=== PATIENT | male | born 1950 | race Caucasian/White ===

== ENCOUNTER 2020-10-14 18:00 | Inpatient (IN) | payer OTHER, MEDICARE ==
[~2020-10-14] VITALS: Ht 185.4 cm; Wt 92.7 kg
[2020-10-14] MEDS: METOPROLOL TART 25 MG TABLET PO SCH (09:00)
[2020-10-14] MEDS ORDERED: NS 1,000 ML IV ONE (18:55)
--- NOTE | 2020-10-14 19:27 | REP ---
INDICATION: infected right great toe ? osteo. COMPARISON: NONE TECHNIQUE: FOUR VIEWS FINDINGS: THE FOUR VIEWS SHOW DEGENERATIVE CHANGES AT THE HIGH P AND MTP JOINT OF THE GREAT TOE WITH MARGINAL OSTEOPHYTES. I DO NOT SEE SUBCUTANEOUS EMPHYSEMA IN THE TOE SOME MILD SOFT TISSUE SWELLING IS IDENTIFIED. NO SOFT TISSUE ULCERATIONS ARE SEEN. NO PLAIN FILM BONY EROSIONS ARE IDENTIFIED. FIRST METATARSAL AND ADJACENT METATARSALS AND PHALANGES ARE WITHOUT OTHER SIGNIFICANT FINDINGS. IMPRESSION: 1. MINOR SOFT TISSUE SWELLING ABOUT THE GREAT TOE BUT NO VISIBLE OR DISPLACED FRACTURE, BONY DESTRUCTIVE LESION, SOFT TISSUE ULCERATION OR BONY EROSION. RADIOGRAPH SUGGESTS A VERY THICKENED TOENAIL OF THE GREAT TOE. NO SUBCUTANEOUS EMPHYSEMA BY PLAIN FILM. THERE ARE DEGENERATIVE CHANGES AT IP AND MTP JOINTS OF THE GREAT TOE. NO OTHER RADIOGRAPHIC FINDINGS. PLEASE RECALL THAT PLAIN RADIOGRAPHS REQUIRE LEAST 50% OF AN AREA OF BONE NEEDS TO BE RESORBED BEFORE OSTEOMYELITIS IS GENERALLY VISIBLE ON PLAIN X-RAY. <Electronically signed by Rick Desai > 10/14/201923
[2020-10-14 19:36] LABS: BASO # 0.1 10^3/uL (0.0-0.2); BASO % 0.7 % (0.0-1.0); EOS # 0.2 10^3/uL (0.0-0.5); EOS % 1.6 % (0.0-3.0); HEMOGLOBIN 13.6 g/dl (13.5-17.5); LYMPH # 1.9 10^3/uL (1.5-5.0); LYMPH % 14.3 % (24.0-44.0); MEAN CORPUSCULAR HEMOGLOBIN 28.3 pg (27.0-33.0); MEAN CORPUSCULAR HGB CONC 31.6 g/dl (32.0-36.5); MEAN CORPUSCULAR VOLUME 89.4 fl (80.0-96.0); NEUTROPHILS # 10.3 10^3/uL (1.5-8.5); PLATELET COUNT, AUTOMATED 378 10^3/uL (150-450); RED BLOOD COUNT 4.81 10^6/uL (4.30-6.10); WHITE BLOOD COUNT 13.6 10^3/uL (4.0-10.0)
[2020-10-14 19:55] LABS: ERYTHROCYTE SEDIMENTATION RATE 48 mm/hr (0-20)
[2020-10-14] MEDS ORDERED: VANCOMYCIN HCL 1,750 MG in IV FLUID PLACE HOLDER 1 EA IV ONE (19:55)
[2020-10-14 20:03] LABS: ALBUMIN 4.1 GM/DL (3.2-5.2); BILIRUBIN,DIRECT 0.2 MG/DL (0.0-0.2); BILIRUBIN,TOTAL 0.5 MG/DL (0.2-1.0); C REACTIVE PROTEIN QUANTITATIV 4.38 MG/DL (0.00-0.30); TOTAL PROTEIN 8.4 GM/DL (6.4-8.2)
--- NOTE | 2020-10-14 20:03 | REPVR ---
PROCEDURE INFORMATION: Exam: US Duplex Right Lower Extremity Veins, Limited Exam date and time: 10/14/2020 7:58 PM Age: 69 years old Clinical indication: Swelling (edema) of limb; Lower extremity, right; Additional info: R/O dvt TECHNIQUE: Imaging protocol: Real-time Duplex ultrasound of the Right Lower Extremity with 2-D gresham scale, color Doppler flow and spectral waveform analysis with image documentation. Limited exam was focused on the right lower extremity veins. COMPARISON: No relevant prior studies available. FINDINGS: Right deep veins: Unremarkable. The common femoral, femoral, proximal profunda femoral and popliteal veins are patent without thrombus. Normal Doppler waveforms. Normal compressibility and/or augmentation response. Right superficial veins: Unremarkable. Saphenofemoral junction is patent without thrombus. Soft tissues: Unremarkable. IMPRESSION: No evidence of deep vein thrombosis. Electronically signed by: Pk Greenwood On 10/14/2020 20:03:17 PM
[2020-10-14] MEDS ORDERED: VANCOMYCIN HCL 750 MG, VIAL MATE ADAPTER 1 EACH in NS 250 ML IV ONE (20:05)
[2020-10-14] MEDS ORDERED: VANCOMYCIN HCL 1,000 MG, VIAL MATE ADAPTER 1 EACH in NS 250 ML IV ONE (20:05)
[2020-10-14] MEDS: LATANOPROST 0.005% OPHTH SOLN 2.5 ML OU SCH (21:00)
[2020-10-14] MEDS: LEVEMIR (INSULIN DETEMIR) 1 UNITS/0.01ML SC SCH (21:00)
[2020-10-14] MEDS ORDERED: MOM 30ML SUSPENSION UDC PO PRN (21:05)
[2020-10-14] MEDS ORDERED: ACETAMINOPHEN TAB 650MG DOSE (2X325MG) PO PRN (21:05)
[2020-10-14] MEDS ORDERED: MAALOX 30 ML SUSP *UDC PO PRN (21:05)
[2020-10-14] MEDS ORDERED: GLUCOSE 4GM CHEW TABLET PO PRN (21:10)
[2020-10-14] MEDS ORDERED: GLUCAGON INJ 1MG VIAL SC PRN (21:10)
[2020-10-14] MEDS ORDERED: VANCOMYCIN HCL 1,000 MG, VIAL MATE ADAPTER 1 EACH in NS 250 ML IV SCH (21:10)
[2020-10-14] MEDS ORDERED: DEXTROSE 50% 50 ML SYRINGE IV PRN (21:10)
[2020-10-14] MEDS ORDERED: ATOR80TA59 PO (21:26)
[2020-10-14] MEDS ORDERED: FERR32TA PO (21:26)
[2020-10-14] MEDS ORDERED: POTA10CA32 PO (21:26)
[2020-10-14] MEDS ORDERED: HYDR-3490 PO (21:26)
[2020-10-14] MEDS ORDERED: GLUC1KIT IM (21:26)
[2020-10-14] MEDS ORDERED: ASPI-161 PO (21:26)
[2020-10-14] MEDS ORDERED: METO1TAB87 PO (21:26)
[2020-10-14] MEDS ORDERED: XALA0.007 OU (21:26)
[2020-10-14] MEDS ORDERED: FINA5TAB2 PO (21:26)
[2020-10-14] MEDS ORDERED: LEVO25TA5 PO (21:26)
[2020-10-14] MEDS ORDERED: AMLO1TAB25 PO (21:26)
[2020-10-14] MEDS ORDERED: FOSI20TA79 PO (21:26)
[2020-10-14] MEDS ORDERED: LANTINJ4 SC (21:26)
[2020-10-14] MEDS ORDERED: GABA-845 PO (21:26)
[2020-10-14] MEDS ORDERED: D31000TA2 PO (21:26)
[2020-10-14] MEDS ORDERED: METF-838 PO (21:26)
[2020-10-14] MEDS ORDERED: ALLO100T PO (21:26)
[2020-10-14] MEDS ORDERED: INSUH10VL SC (21:26)
[2020-10-14 21:43] LABS: RSV AMPLIFICATION NEGATIVE (NEGATIVE)
--- NOTE | 2020-10-14 21:53 | HPEPDOC ---
[facility] Medical History & Physical Date of Admission Oct 14, 2020 Date of Service: Oct 14, 2020 History and Physical CHIEF COMPLAINT: R toe pain HISTORY OF PRESENT ILLNESS: 69 yo M, with a PMHx of CAD (s/p CABG 2011), DM2, H TN, HLD, CVA, presented to ER with a 1 week hx of R great toe pain and swelling, with redness extending up the R leg. Patient denies recent trauma or abrasion to the leg, no falls, and does not report fevers or chills. He has been taking keflex for the past 3 days without improvement. Vitals were reviewed. T 97.9. HR 77. RR 24. BP 150/80. 98% on RA. Lab work significant for: WBC 13.6. Hgb 13.6. PLT 378. LA 2.3. Cr 1.5 (POC). BG 167. CRP 4.38. ESR 48. XR of the R foot does not indicate evidence for osteomyelitis. DVT in the RLE was ruled out by venous duplex. He was started on IV vancomycin and given a 1L NS bolus. Wound and blood cultures were sent from ER. Patient will be admitted for management of R foot cellulitis 2/2 acute paronychia. Patient denies chest pain, palpitations, nausea, vomiting, diarrhea. Of note, patient has a hx of suspect compartment syndrome vs infection of the R leg, which occurred subsequent to harvesting of venous grafts from his R leg during his CABG in 2011, resulting in neuropathy. PAST MEDICAL HISTORY: DM2 CAD s/p CABG HTN HLD CVA HLD PAST SURGICAL HISTORY: CABG in 2011. SOCIAL HISTORY: denies etoh, tobacco use, illicits FAMILY HISTORY: Mother and brother - [place] ALLERGIES: Please see below. REVIEW OF SYSTEMS: A 10 point ROS was conducted, pertinent findings are noted in the HPI HOME MEDICATIONS: Please see below. PHYSICAL EXAMINATION: VITAL SIGNS: please see below General: NAD, comfortable HEENT: PERRLA, EOMI, sclerae clear Neck: supple, normal ROM, no JVD Respiratory: lungs CTAB, no wheeze, no rales, no crackles CVS: RRR, normal S1, S2, no murmurs Abdo: soft, no masses, no hepatosplenomegaly, BS+, no rebound tenderness Extremities: R toe nail hyperkeratotic, erythematous, swollen, with erythema extending upwards to include mid calf. Numerous scars on R leg, possibly 2/2 fasciotomy? Neuro: moving all 4 extremities, CN2-12 intact Psych: calm, cooperative, AAO x 3 LABORATORY DATA: See below. IMAGING: MRI R foot (10/14/20): 1. Acute osteomyelitis of the hallux distal phalanx, as described above. RLE venous duplex (10/14/20): No evidence of deep vein thrombosis. R toe XR (10/14/20): MINOR SOFT TISSUE SWELLING ABOUT THE GREAT TOE BUT NO VISIBLE OR DISPLACED FRACTURE, BONY DESTRUCTIVE LESION, SOFT TISSUE ULCERATION OR BONY EROSION. RADIOGRAPH SUGGESTS A VERY THICKENED TOENAIL OF THE GREAT TOE. NO SUBCUTANEOUS EMPHYSEMA BY PLAIN FILM. THERE ARE DEGENERATIVE CHANGES AT IP AND MTP JOINTS OF THE GREAT TOE. NO OTHER RADIOGRAPHIC FINDINGS. PLEASE RECALL THAT PLAIN RADIOGRAPHS REQUIRE LEAST 50% OF AN AREA OF BONE NEEDS TO BE RESORBED BEFORE OSTEOMYELITIS IS GENERALLY VISIBLE ON PLAIN X-RAY. MICROBIOLOGY: Please see below. ASSESSMENT: 69 yo M, with a PMHx of CAD (s/p CABG 2011), DM2, HTN, HLD, CVA, presenting with erythema, pain and purulent discharge from the R great toe for the past week. Patient will be admitted to hospitalist service for management of RLE cellulitis 2/2 acute paronychia. . PLAN: R leg cellulitis 2/2 acute paronychia - WBC elevated 13.6. Afebrile - blood and wound cultures sent from ER - XR imaging does not show osteomyelitis - started on vancomycin in ER. Added cefepime - ordered MRSA screen - patient will require podiatry evaluation in AM - given hx of DM2, and onset of symptoms < 2 weeks, will pursue MRI imaging - showing acute osteomyelitis of the R hallux. - will keep patient NPO in event of surgical intervention in AM MICHAEL - Cr 1.5 - s/p 1L NS in ER - gentle IVF D5-1/2NS at 80 cc/hr while NPO DM2 - takes lantus 20 units with ISS, metformin - resume home dose lantus - ISS, FSBS AC and HS - hold metformin HTN - resume home meds: amlodipine 10 mg daily; holding fosinopril 10 mg daily HCTZ 25 mg daily in setting of MICHAEL Hx of hypothyroidism - resume Synthroid 37.5 mcg daily Neuropathy affecting RLE - takes gabapentin 1200 mg qhs - will hold this evening given MICHAEL Hx of CAD s/p CABG - resume home ASA/lipitor Hx of iron deficiency anemia - resume iron Hx of BPH - resume proscar Hx of gout - resume allopurinol DVT ppx: SCDs, TEDs. Heparin 5000 units q8h. Dispo: pending clinical improvement. PT and OT ordered given reduced mobility and use of walker/cane. Vital Signs Vital Signs Date Time Temp Pulse Resp B/P (MAP) Pulse Ox O2 Delivery O2 Flow Rate FiO2 10/14/20 19:28 10/14/20 18:11 97.9 77 24 98 Room Air Laboratory Data Labs 24H Laboratory Tests 2 10/14/20 19:05: Immature Granulocyte % (Auto) 0.4, Neutrophils (%) (Auto) 76.0H, Lymphocytes (%) (Auto) 14.3L, Monocytes (%) (Auto) 7.0, Eosinophils (%) (Auto) 1.6, Basophils (%) (Auto) 0.7, Neutrophils # (Auto) 10.3H, Lymphocytes # (Auto) 1.9, Monocytes # (Auto) 1.0H, Eosinophils # (Auto) 0.2, Basophils # (Auto) 0.1, Nucleated Red Blood Cells % (auto) 0.0, Erythrocyte Sedimentation Rate 48H, Lactic Acid Level 2.3*H, Total Bilirubin 0.5, Direct Bilirubin 0.2, Aspartate Amino Transf (AST/SGOT) 9, Alanine Aminotransferase (ALT/SGPT) 22, Alkaline Phosphatase 145H, C-Reactive Protein, Quantitative 4.38H, Total Protein 8.4H, Albumin 4.1, Albumin/Globulin Ratio 1.0 10/14/20 19:27: POC Glucose (Misc Panel) 167H, POC Sodium (Misc Panel) 138, POC Potassium (Misc Panel) 4.3, POC Chloride (Misc Panel) 103, POC Total CO2 (Misc Panel) 25.0, POC Blood Urea Nitrogen (Misc Panel 28H, POC Ionized Calcium (Misc Panel) 5.1, POC Creatinine (Misc Panel) 1.5H, POC Hematocrit (Misc Panel) 43.0 10/14/20 20:58: CBC/BMP Laboratory Tests 10/14/20 19:05 Microbiology Microbiology 10/14/20 Gram Stain, Received Pending 10/14/20 Wound Culture, Received Pending 10/14/20 Blood Culture, Received Pending 10/14/20 Blood Culture, Received Pending Home Medications Scheduled Allopurinol (Allopurinol) 100 Mg Tablet, 100 MG PO DAILY Amlodipine Besylate (Amlodipine Besylate) 10 Mg Tablet, 10 MG PO DAILY Aspirin (Aspirin EC) 81 Mg Tablet.dr, 81 MG PO DAILY Atorvastatin Calcium (Atorvastatin Calcium) 80 Mg Tablet, 80 MG PO DAILY Cholecalciferol (Vitamin D3) (Vitamin D3) 1,000 Unit Tablet, 2,000 UNITS PO DAILY Ferrous Gluconate (Ferrous Gluconate) 324 Mg Tablet, 324 MG PO BID Finasteride (Finasteride) 5 Mg Tablet, 5 MG PO DAILY Fosinopril Sodium (Fosinopril Sodium) 20 Mg Tablet, 10 MG PO DAILY Gabapentin (Gabapentin) 400 Mg Capsule, 1,200 MG PO QHS Hydrochlorothiazide (Hydrochlorothiazide) 25 Mg Tablet, 25 MG PO DAILY Insulin Glargine,Hum.rec.anlog (Lantus Solostar) 100 Unit/1 Ml Insuln.pen, 20 UNITS SC QHS Insulin Human Lispro (Novolog) 100 Unit/1 Ml Vial, 1 DOSE SC AC PER SLIDING SCALE Latanoprost (Xalatan) 0.005% 2.5ML Drops, 1 DROP OU QHS Levothyroxine Sodium (Levothyroxine Sodium) 25 Mcg Tablet, 37.5 MCG PO DAILY Metformin HCl (Metformin HCl ER) 500 Mg Tab.er.24h, 1,000 MG PO BID Metoprolol Tartrate (Metoprolol Tartrate) 25 Mg Tablet, 12.5 MG PO BID Potassium Chloride (Potassium Chloride) 10 Meq Capsule.er, 10 MEQ PO BID Scheduled PRN Glucagon,Human Recombinant (Glucagon Emergency Kit) 1 Mg Vial, 1 MG IM ASDIRECTED PRN for LOW BLOOD SUGAR Allergies Coded Allergies: No Known Drug Allergies (Verified Allergy, Unknown, 10/14/20) A-FIB/CHADSVASC A-FIB History Current/History of A-Fib/PAF?: No Current PO Anticoag Therapy: No LUCRETIA RAYMOND MD Oct 14, 2020 21:53
[2020-10-14] MEDS ORDERED: PROHANCE 279.3MG/ML 5ML VIAL As Ordered ONE (22:56)
[2020-10-14 23:30] VITALS: BP 160/62
--- NOTE | 2020-10-14 23:34 | REPVR ---
PROCEDURE INFORMATION: Exam: MR Right Lower Extremity Other Than Joint Without and With Contrast; Foot Exam date and time: 10/14/2020 11:23 PM Age: 69 years old Clinical indication: Cellulitis; Foot and toes; Right; Additional info: R/O ostemyelitis in R great toe TECHNIQUE: Imaging protocol: MR of the Right lower extremity without and with intravenous contrast. Exam focused on the foot. Contrast material: PROHANCE; Contrast volume: 8.5 ml; Contrast route: INTRAVENOUS (IV); COMPARISON: CR Toes RIGHT 10/14/2020 7:04 PM FINDINGS: There is diffuse soft tissue swelling and subcutaneous edema with overlying skin thickening, most pronounced about the ankle and along the dorsum of the foot. There is a soft tissue ulceration abutting the hallux distal phalanx. No organized fluid collection is identified to suggest abscess. There is no soft tissue mass. No acute tendon or ligament injury is identified. There is no MR evidence of acute fracture or dislocation. Alignment is anatomic. There is prominent bone marrow edema in the hallux distal phalanx, which is clearly evident on the fluid sensitive and T1 weighted sequences and demonstrates brisk enhancement after administration of intravenous contrast material. No convincing erosive or destructive changes are seen. There is no lytic or blastic lesion. There is no significant effusion. IMPRESSION: 1. Acute osteomyelitis of the hallux distal phalanx, as described above. 2. Additional findings, as above. Electronically signed by: Raleigh Gamino On 10/14/2020 23:34:30 PM
[2020-10-15] MEDS: METOPROLOL TART 25 MG TABLET PO SCH ×4 (00:17→22:04)
[2020-10-15] MEDS: POTASSIUM CHLORIDE 10 MEQ SR TABLET PO SCH ×3 (00:17→22:01)
[2020-10-15] MEDS: GABAPENTIN 400MG CAP PO SCH ×2 (00:18→22:01)
[2020-10-15] MEDS: HEPARIN SOD (PORCINE) 5000UNITS/ML 1ML VIAL/SYRINGE SQ SCH ×4 (00:18→22:00)
[2020-10-15] MEDS: CEFEPIME HCL 2 GM in D5W MINI-BAG PLUS 50 ML IV SCH ×3 (00:19→15:24)
[2020-10-15] MEDS: D5W/0.45% SODIUM CHLORIDE 1,000 ML IV SCH ×2 (00:24→08:52)
[2020-10-15] MEDS: LEVOTHYROXINE 25MCG TABLET (0.025MG) PO SCH (05:55)
[2020-10-15 06:00] VITALS: BP 164/78
[2020-10-15 06:53] LABS: BASO # 0.1 10^3/uL (0.0-0.2); EOS # 0.3 10^3/uL (0.0-0.5); EOS % 2.6 % (0.0-3.0); HEMATOCRIT 38.7 % (42.0-52.0); HEMOGLOBIN 12.4 g/dl (13.5-17.5); LYMPH # 1.7 10^3/uL (1.5-5.0); LYMPH % 17.1 % (24.0-44.0); MEAN CORPUSCULAR HEMOGLOBIN 28.4 pg (27.0-33.0); MEAN CORPUSCULAR VOLUME 88.8 fl (80.0-96.0); MONO # 0.8 10^3/uL (0.0-0.8); MONO % 7.9 % (2.0-8.0); NEUTROPHILS % 71.2 % (36.0-66.0); PLATELET COUNT, AUTOMATED 304 10^3/uL (150-450); RED BLOOD COUNT 4.36 10^6/uL (4.30-6.10); WHITE BLOOD COUNT 9.9 10^3/uL (4.0-10.0)
[2020-10-15 07:22] LABS: ALBUMIN 3.2 GM/DL (3.2-5.2); BILIRUBIN,TOTAL 0.7 MG/DL (0.2-1.0); C REACTIVE PROTEIN QUANTITATIV 2.92 MG/DL (0.00-0.30); CALCIUM LEVEL 8.4 MG/DL (8.8-10.2); CREATININE FOR GFR 1.33 MG/DL (0.70-1.30); GLOMERULAR FILTRATION RATE 56.8 (>49); TOTAL PROTEIN 7.4 GM/DL (6.4-8.2)
[2020-10-15 07:34] LABS: ERYTHROCYTE SEDIMENTATION RATE 44 mm/hr (0-20)
[2020-10-15] MEDS: HumaLOG INSULIN (NovoLOG) PER UNIT SC SCH ×4 (08:49→21:59)
[2020-10-15] MEDS: VANCOMYCIN HCL 750 MG, VIAL MATE ADAPTER 1 EACH in NS 250 ML IV SCH ×2 (08:50→21:58)
[2020-10-15] MEDS: DOCUSATE SODIUM 100MG CAPSULE PO SCH ×2 (08:50→22:01)
[2020-10-15] MEDS: ASPIRIN 81MG ENTERIC TABLET PO SCH (08:50)
[2020-10-15] MEDS: allopurinoL 100 MG TAB PO SCH (08:50)
[2020-10-15] MEDS: FINASTERIDE 5 MG TAB PO SCH (08:50)
[2020-10-15] MEDS: FERROUS GLUCONATE 324 MG TAB PO SCH ×2 (08:50→22:01)
[2020-10-15] MEDS: VITAMIN D 1,000 INTERNATIONAL UNITS TABLET PO SCH (08:51)
[2020-10-15] MEDS: ATORVASTATIN 20 MG TAB PO SCH (08:51)
[2020-10-15] MEDS ORDERED: ENOXAPARIN 40MG/0.4ML SYRINGE (J1650 PER 10MG) SC SCH (09:00)
--- NOTE | 2020-10-15 11:46 | IPNPDOC ---
Date Seen The patient was seen on 10/15/20. Progress Note SUBJECTIVE: Patient was seen and examined this morning. He currently has no new complaints. MRI demonstrating acute osteomyelitis of the right great toe. OBJECTIVE PHYSICAL EXAMINATION: VITAL SIGNS: Please see below. GENERAL: Awake, alert ,and oriented. Appears in no acute distress. Lying com fortably in bed HEENT: Atraumatic, normocephalic. Eyes are nonicteric. Trachea is midline CARDIOVASCULAR: Normal S1, S2. Regular rate and rhythm. No clicks rubs or murmurs RESPIRATORY: Clear breath sounds bilaterally. Good respiratory effort. No wheezes, rhonchi, or rales ABDOMINAL: Soft, nondistended. Nontender. Normoactive bowel sounds EXTREMITIES: No edema. Area of erythema extending from right great toe dorsally to the ankle. Paronychia and onychomycosis. Full and equal pulses in bilateral upper and lower extremities NEUROLOGICAL: No focal neurological deficits PSYCHOLOGICAL: Mood and affect appear appropriate LABORATORY DATA, IMAGING STUDIES, MICROBIOLOGY: Please see below. DVT prophylaxis ordered?: Heparin ASSESSMENT AND PLAN: Patient is a 69 year old male with a past medical history significant for CAD s/p CABG in 2011 with right leg vein havesting, DMII, HTN, HLD, and CVA who presented to the [facility] ER with complaint of right great toe pain, swelling, and redness extending up his leg. Patient was admitted for right toe osteomyelitis and cellulits PROBLEMS: 1. Right foot cellulitis with acute osteomyelitis of the great toe -Patient has cellulitis with underlying osteomyelitis of the right great toe. -MRI showing acute osteo of right great toe -Continue Vanc and Cefepime -Podiatry consulted for evaluation -Patient NPO for now. 2. MICHAEL -Likely prerenal. Improving with IV fluids. Will continue to monitor 3. DMII -Continue home basal insulin -Sliding scale ACHS 3. HTN -Continue home medications -Amlodapine -Holding Lisinopril and hydrochlorothiazide due to MICHAEL 5. Hypothyroidism -Continue Syndthroid 6. 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 CAD s/p CABG -Continue ASA and Lipitor 8. Iron Deficiency Anemia -Continue iron 9. BPH -Continue Proscar 10. Gout -Continue Allopurinol ' 11. DVT Prophylaxis -Heparin DISPOSITION: Podiatry evaluation today. Further plan depends on intervention. If amputation patient will not need extended antibiotics. If no intervention patient will need middle or intermediate school principal antibiotics and PICC line placement VS, I&O, 24H, [facility] Vital Signs/I&O Vital Signs Date Time Temp Pulse Resp B/P (MAP) Pulse Ox O2 Delivery O2 Flow Rate FiO2 10/15/20 08:51 60 164/78 10/15/20 06:00 97.7 18 95 Room Air I&O- Last 24 Hours up to 6 AM 10/15/20 06:00 Intake Total 1545 ml Output Total 800 ml Balance 745 ml Laboratory Data 24H LABS Laboratory Tests 2 10/14/20 19:05: Immature Granulocyte % (Auto) 0.4, Neutrophils (%) (Auto) 76.0H, Lymphocytes (%) (Auto) 14.3L, Monocytes (%) (Auto) 7.0, Eosinophils (%) (Auto) 1.6, Basophils (% ) (Auto) 0.7, Neutrophils # (Auto) 10.3H, Lymphocytes # (Auto) 1.9, Monocytes # (Auto) 1.0H, Eosinophils # (Auto) 0.2, Basophils # (Auto) 0.1, Nucleated Red Blood Cells % (auto) 0.0, Erythrocyte Sedimentation Rate 48H, Lactic Acid Level 2.3*H, Total Bilirubin 0.5, Direct Bilirubin 0.2, Aspartate Amino Transf (AST/SGOT) 9, Alanine Aminotransferase (ALT/SGPT) 22, Alkaline Phosphatase 145H, C-Reactive Protein, Quantitative 4.38H, Total Protein 8.4H, Albumin 4.1, Albumin/Globulin Ratio 1.0 10/14/20 19:27: POC Glucose (Misc Panel) 167H, POC Sodium (Misc Panel) 138, POC Potassium (Misc Panel) 4.3, POC Chloride (Misc Panel) 103, POC Total CO2 (Misc Panel) 25.0, POC Blood Urea Nitrogen (Misc Panel 28H, POC Ionized Calcium (Misc Panel) 5.1, POC Creatinine (Misc Panel) 1.5H, POC Hematocrit (Misc Panel) 43.0 10/14/20 20:58: Coronavirus (COVID-19)(PCR) NEGATIVE, Influenza Type A (RT-PCR) NEGATIVE, Influenza Type B (RT-PCR) NEGATIVE, Respiratory Syncytial Virus (PCR) NEGATIVE 10/14/20 23:34: Bedside Glucose (Misc Panel) 159H 10/15/20 00:12: Lactic Acid Followup at 4 Hours 3.0*H 10/15/20 06:21: Immature Granulocyte % (Auto) 0.2, Neutrophils (%) (Auto) 71.2H, Lymphocytes (%) (Auto) 17.1L, Monocytes (%) (Auto) 7.9, Eosinophils (%) (Auto) 2.6, Basophils (%) (Auto) 1.0, Neutrophils # (Auto) 7.0, Lymphocytes # (Auto) 1.7, Monocytes # (Auto) 0.8, Eosinophils # (Auto) 0.3, Basophils # (Auto) 0.1, Nucleated Red Blood Cells % (auto) 0.0, Erythrocyte Sedimentation Rate 44H, Anion Gap 6L, Glomerular Filtration Rate 56.8, Calcium Level 8.4L, Magnesium Level 2.0, Total Bilirubin 0.7, Aspartate Amino Transf (AST/SGOT) 6L, Alanine Aminotransferase (ALT/SGPT) 18, Alkaline Phosphatase 120H, C-Reactive Protein, Quantitative 2.92H, Total Protein 7.4, Albumin 3.2#, Albumin/Globulin Ratio 0.8 10/15/20 11:19: Bedside Glucose (Misc Panel) 222H CBC/BMP Laboratory Tests 10/14/20 19:05 10/15/20 06:21 Microbiology Microbiology 10/14/20 Gram Stain - Final, Resulted 10/14/20 Wound Culture, Resulted Pending 10/14/20 Blood Culture, Received Pending 10/14/20 Blood Culture, Received Pending GME ATTESTATION GME ATTESTATION My faculty preceptor for this patient encounter was physically present during the encounter and was fully available. All aspects of the patient interview, examination, medical decision making process, and medical care plan development were reviewed and approved by the faculty preceptor. The faculty preceptor is aware and concurs with the plan as stated in the body of this note and will attest to such by his/her cosignature. ATTENDING NOTE Attending Attestation: Patient independently seen and examined. I have discussed in detail with the resident / student the findings and plan of treatment as documented by the resi dent / student. I agree with their findings and treatment plan and have edited their documentation. I will continue to follow the patient during this hospital stay. ANGLE DAIGLE DO Oct 15, 2020 11:46 TIFFANY JURADO MD Oct 17, 2020 07:02
[2020-10-15] MEDS ORDERED: NS 1,000 ML IV SCH (11:50)
[2020-10-15 14:00] VITALS: BP 158/81
[2020-10-15] MEDS ORDERED: LIDOCAINE 1% MDV 20ML VIAL SC ONE (16:35)
[2020-10-15 22:00] VITALS: BP 153/64
[2020-10-15] MEDS: LEVEMIR (INSULIN DETEMIR) 1 UNITS/0.01ML SC SCH (22:00)
[2020-10-15] MEDS: LATANOPROST 0.005% OPHTH SOLN 2.5 ML OU SCH (23:36)
[2020-10-16] MEDS: CEFEPIME HCL 2 GM in D5W MINI-BAG PLUS 50 ML IV SCH ×3 (00:22→17:21)
--- NOTE | 2020-10-16 01:22 | CR ---
CONSULTATION DATE: 10/15/2020 REASON FOR CONSULTATION: Right toe ulcer. HISTORY OF PRESENT ILLNESS: Rgio Lin is a pleasant 69-year-old male who presents to [facility] with complaints of painful right toe. He believes the wound has been present for about a week. He denies previous pain to his toe. PAST MEDICAL HISTORY: Significant for diabetes with peripheral neuropathy, coronary artery disease; status post CABG, hypertension, hyperlipidemia, CVA. PAST SURGICAL HISTORY: Includes CABG. FAMILY HISTORY: For myocardial infarction. SOCIAL HISTORY: Denies alcohol or tobacco use. ALLERGIES: No known drug allergies. REVIEW OF SYSTEMS: He denies nausea, vomiting, fever or chills. Vitals are reviewed. He has been afebrile since admission. LABORATORY DATA: Labs are reviewed. White blood cell count on admission 13.6; today it is 9.9. ESR 44. CRP 2.92. Gram-stain showed epithelial cells, no organisms. Wound culture is pending. IMAGING STUDIES: Toe x-rays are indeterminate for osteomyelitis. MRI of right foot shows findings consistent with osteomyelitis of the distal phalanx. LOWER EXTREMITY EXAMINATION: Pedal pulses are palpable. There is erythema and edema extending from the right hallux with proximal streaking. There is a markedly thickened and ingrown nail to the right hallux as well as the other toes. Underneath the nail is an ulcer with probe to bone and some slight necrotic bone underneath the nail. ASSESSMENT: This is a 69-year-old diabetic male with right hallux osteomyelitis and ingrown nail. TREATMENT: Informed consent obtained. After Betadine cleanse, toe was anesthetized with 3 cc of 1% Lidocaine plain. Using a Bristol elevator, the entire right hallux nail was removed. Underneath the nail was noted to be a small 0.5 cm diameter ulceration with nonviable bone exposed. Nonviable bone was removed using the Bristol and bone ronguer. The remaining bone appeared viable. Following this, Xeroform and gauze dressing were applied. Await culture results. Patient most likely will be treated with I.V. antibiotics during his hospital admission and can be discharged with oral antibiotics once his streaking erythema has resolved. He should have follow-up with myself in the office.
[2020-10-16] MEDS: HEPARIN SOD (PORCINE) 5000UNITS/ML 1ML VIAL/SYRINGE SQ SCH ×3 (05:17→21:00)
[2020-10-16] MEDS: LEVOTHYROXINE 25MCG TABLET (0.025MG) PO SCH (05:17)
[2020-10-16 06:00] VITALS: BP 119/62
[2020-10-16 06:47] LABS: BASO # 0.1 10^3/uL (0.0-0.2); BASO % 1.1 % (0.0-1.0); EOS # 0.4 10^3/uL (0.0-0.5); EOS % 4.4 % (0.0-3.0); HEMATOCRIT 39.7 % (42.0-52.0); HEMOGLOBIN 12.8 g/dl (13.5-17.5); LYMPH # 1.4 10^3/uL (1.5-5.0); LYMPH % 17.4 % (24.0-44.0); MEAN CORPUSCULAR HEMOGLOBIN 28.8 pg (27.0-33.0); MEAN CORPUSCULAR HGB CONC 32.2 g/dl (32.0-36.5); MEAN CORPUSCULAR VOLUME 89.4 fl (80.0-96.0); MONO # 0.8 10^3/uL (0.0-0.8); MONO % 9.1 % (2.0-8.0); NEUTROPHILS # 5.6 10^3/uL (1.5-8.5); NEUTROPHILS % 67.5 % (36.0-66.0); PLATELET COUNT, AUTOMATED 330 10^3/uL (150-450); RED BLOOD COUNT 4.44 10^6/uL (4.30-6.10); WHITE BLOOD COUNT 8.3 10^3/uL (4.0-10.0)
[2020-10-16 07:19] LABS: ALBUMIN 3.1 GM/DL (3.2-5.2); ALT/SGPT 17 U/L (12-78); BILIRUBIN,TOTAL 0.6 MG/DL (0.2-1.0); BLOOD UREA NITROGEN 15 MG/DL (7-18); C REACTIVE PROTEIN QUANTITATIV 2.62 MG/DL (0.00-0.30); CARBON DIOXIDE LEVEL 25 MEQ/L (21-32); CHLORIDE LEVEL 107 MEQ/L (98-107); CREATININE FOR GFR 1.19 MG/DL (0.70-1.30); GLOMERULAR FILTRATION RATE > 60.0 (>49); GLUCOSE, FASTING 199 MG/DL (70-100); SODIUM LEVEL 138 MEQ/L (136-145); TOTAL PROTEIN 7.5 GM/DL (6.4-8.2)
[2020-10-16 07:39] LABS: ERYTHROCYTE SEDIMENTATION RATE 47 mm/hr (0-20)
[2020-10-16] MEDS: HumaLOG INSULIN (NovoLOG) PER UNIT SC SCH ×4 (08:24→20:48)
[2020-10-16 09:00] VITALS: BP 181/79
[2020-10-16 09:30] VITALS: BP 181/79
[2020-10-16] MEDS: DOCUSATE SODIUM 100MG CAPSULE PO SCH ×2 (10:16→21:00)
[2020-10-16] MEDS: ASPIRIN 81MG ENTERIC TABLET PO SCH (10:19)
[2020-10-16] MEDS: METOPROLOL TART 12.5 MG PER 1/2 TAB PO SCH ×2 (10:19→21:01)
[2020-10-16] MEDS: allopurinoL 100 MG TAB PO SCH (10:20)
[2020-10-16] MEDS: POTASSIUM CHLORIDE 10 MEQ SR TABLET PO SCH ×2 (10:21→21:01)
[2020-10-16] MEDS: VITAMIN D 1,000 INTERNATIONAL UNITS TABLET PO SCH (10:22)
[2020-10-16] MEDS: FINASTERIDE 5 MG TAB PO SCH (10:22)
[2020-10-16] MEDS: FERROUS GLUCONATE 324 MG TAB PO SCH ×2 (10:22→21:01)
[2020-10-16] MEDS: ATORVASTATIN 20 MG TAB PO SCH (10:23)
[2020-10-16] MEDS: VANCOMYCIN HCL 750 MG, VIAL MATE ADAPTER 1 EACH in NS 250 ML IV SCH ×2 (11:16→21:00)
--- NOTE | 2020-10-16 11:44 | IPNPDOC ---
Date Seen The patient was seen on 10/16/20. Progress Note SUBJECTIVE: Patient was seen and examined this morning. He has his right great toenail removed by podiatry yesterday. He states that he has some pain in his right foot although it is manageable. OBJECTIVE PHYSICAL EXAMINATION: VITAL SIGNS: Please see below. GENERAL: Awake, alert, and oriented. Appears in no acute distress. Lying comfortably in bed HEENT: Atraumatic, normocephalic. Eyes are nonicteric. Trachea is midline. Mucous membranes are pink and moist CARDIOVASCULAR: Normal S1, S2. Regular rate and rhythm. No clicks, rubs, or murmurs RESPIRATORY: Clear breath sounds bilaterally. Good respiratory effort. No wheezes, rhonchi, or rales ABDOMINAL: Soft, nondistended. Nontender. Normoactive bowel sounds EXTREMITIES: No edema. Right great toe bandaged. There is improvement of the erythema of the dorsal aspect of the right foot NEUROLOGICAL: No focal neurological deficits PSYCHOLOGICAL: Mood and affect appear appropriate LABORATORY DATA, IMAGING STUDIES, MICROBIOLOGY: Please see below. DVT prophylaxis ordered?: Heparin ASSESSMENT AND PLAN: Patient is a 69 year old male with a past medical history significant for CAD s/p CABG in 2011 with right leg vein havesting, DMII, HTN, HLD, and CVA who presented to the [facility] ER with complaint of right great toe pain, swelling, and redness extending up his leg. Patient was admitted for right toe osteomyelitis and cellulits PROBLEMS: 1. Right foot cellulitis with acute osteomyelitis of the great toe -Patient has cellulitis with underlying osteomyelitis of the right great toe. -s/p toe nail removal by podiatry. Clean margins on bone -Continue Vanc and Cefepime for superficial cellulitis -Podiatry consulted. Appreciate recommendations and assistance with patient 2. MICHAEL -Resolved. 3. DMII -Continue home basal insulin -Sliding scale ACHS -Consistent carb diet 3. HTN -Continue home medications -Amlodipine -Will resume home Fosinopril -Hold HCTZ 5. Hypothyroidism -Continue Synthroid 6. 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 CAD s/p CABG -Continue ASA and Lipitor 8. Iron Deficiency Anemia -Continue iron 9. BPH -Continue Proscar 10. Gout -Continue Allopurinol ' 11. DVT Prophylaxis -Heparin DISPOSITION: Plan to continue IV antibiotics until cellulitis resolves. PT eval today and likely discharge in 24-28 hours VS, I&O, 24H, Fishbone Vital Signs/I&O Vital Signs Date Time Temp Pulse Resp B/P (MAP) Pulse Ox O2 Delivery O2 Flow Rate FiO2 10/16/20 10:19 181/79 10/16/20 06:00 97.9 57 18 93 Room Air I&O- Last 24 Hours up to 6 AM 10/16/20 06:00 Intake Total 1140 ml Output Total 2250 ml Balance -1110 ml Laboratory Data 24H LABS Laboratory Tests 2 10/15/20 11:19: Bedside Glucose (Misc Panel) 222H 10/15/20 17:28: Bedside Glucose (Misc Panel) 160H 10/15/20 18:41: Vancomycin Level Trough 16.9 10/15/20 21:13: Bedside Glucose (Misc Panel) 291H 10/16/20 06:00: Bedside Glucose (Misc Panel) 190H 10/16/20 06:04: Immature Granulocyte % (Auto) 0.5, Neutrophils (%) (Auto) 67.5H, Lymphocytes (%) (Auto) 17.4L, Monocytes (%) (Auto) 9.1H, Eosinophils (%) (Auto) 4.4H, Basophils (%) (Auto) 1.1H, Neutrophils # (Auto) 5.6, Lymphocytes # (Auto) 1.4L, Monocytes # (Auto) 0.8, Eosinophils # (Auto) 0.4, Basophils # (Auto) 0.1, Nucleated Red Blood Cells % (auto) 0.0, Erythrocyte Sedimentation Rate 47H, Anion Gap 6L, Glomerular Filtration Rate > 60.0, Calcium Level 9.0, Magnesium Level 2.0, Total Bilirubin 0.6, Aspartate Amino Transf (AST/SGOT) 9, Alanine Aminotransferase (ALT/SGPT) 17, Alkaline Phosphatase 115, C-Reactive Protein, Quantitative 2.62H, Total Protein 7.5, Albumin 3.1L, Albumin/Globulin Ratio 0.7 CBC/BMP Laboratory Tests 10/16/20 06:04 Microbiology Microbiology 10/14/20 Gram Stain - Final, Resulted 10/14/20 Wound Culture, Resulted Pending 10/14/20 Blood Culture - Preliminary, Resulted No growth after 24 hours . All specim... 10/14/20 Blood Culture - Preliminary, Resulted No growth after 24 hours . All specim... GME ATTESTATION GME ATTESTATION My faculty preceptor for this patient encounter was physically present during the encounter and was fully available. All aspects of the patient interview, examination, medical decision making process, and medical care plan development were reviewed and approved by the faculty preceptor. The faculty preceptor is aware and concurs with the plan as stated in the body of this note and will attest to such by his/her cosignature. ATTENDING NOTE Attending Attestation: Patient independently seen and examined. I have discussed in detail with the resident / student the findings and plan of treatment as documented by the resident / student. I agree with their findings and treatment plan and have edited their documentation. I will continue to follow the patient during this hospital stay. ANGLE DAIGLE DO Oct 16, 2020 11:44 TIFFANY JURADO MD Oct 17, 2020 07:27
[2020-10-16 12:13] VITALS: BP 153/68
[2020-10-16 14:00] VITALS: BP 165/66
[2020-10-16] MEDS: FOSINOPRIL 10 MG TAB PO SCH (17:24)
[2020-10-16] MEDS: GABAPENTIN 400MG CAP PO SCH (18:21)
[2020-10-16 20:21] VITALS: BP 184/78
[2020-10-16] MEDS: LEVEMIR (INSULIN DETEMIR) 1 UNITS/0.01ML SC SCH (21:00)
[2020-10-16] MEDS: LATANOPROST 0.005% OPHTH SOLN 2.5 ML OU SCH (21:00)
[2020-10-17] MEDS: CEFEPIME HCL 2 GM in D5W MINI-BAG PLUS 50 ML IV SCH ×2 (01:05→08:41)
[2020-10-17 05:37] VITALS: BP 168/72
[2020-10-17] MEDS: HEPARIN SOD (PORCINE) 5000UNITS/ML 1ML VIAL/SYRINGE SQ SCH (05:44)
[2020-10-17] MEDS: LEVOTHYROXINE 25MCG TABLET (0.025MG) PO SCH (05:44)
[2020-10-17 06:39] LABS: BASO # 0.1 10^3/uL (0.0-0.2); BASO % 1.1 % (0.0-1.0); EOS # 0.4 10^3/uL (0.0-0.5); EOS % 5.5 % (0.0-3.0); HEMATOCRIT 40.3 % (42.0-52.0); HEMOGLOBIN 12.9 g/dl (13.5-17.5); LYMPH # 1.5 10^3/uL (1.5-5.0); LYMPH % 19.1 % (24.0-44.0); MEAN CORPUSCULAR HEMOGLOBIN 28.5 pg (27.0-33.0); MONO # 0.7 10^3/uL (0.0-0.8); MONO % 8.6 % (2.0-8.0); NEUTROPHILS # 5.3 10^3/uL (1.5-8.5); NEUTROPHILS % 65.2 % (36.0-66.0); PLATELET COUNT, AUTOMATED 324 10^3/uL (150-450); RED BLOOD COUNT 4.53 10^6/uL (4.30-6.10); WHITE BLOOD COUNT 8.1 10^3/uL (4.0-10.0)
[2020-10-17 07:02] LABS: ALBUMIN 3.2 GM/DL (3.2-5.2); ALT/SGPT 19 U/L (12-78); BILIRUBIN,TOTAL 0.5 MG/DL (0.2-1.0); BLOOD UREA NITROGEN 17 MG/DL (7-18); C REACTIVE PROTEIN QUANTITATIV 1.67 MG/DL (0.00-0.30); CALCIUM LEVEL 8.6 MG/DL (8.8-10.2); CARBON DIOXIDE LEVEL 28 MEQ/L (21-32); CHLORIDE LEVEL 106 MEQ/L (98-107); CREATININE FOR GFR 1.19 MG/DL (0.70-1.30); GLOMERULAR FILTRATION RATE > 60.0 (>49); GLUCOSE, FASTING 196 MG/DL (70-100); MAGNESIUM LEVEL 2.3 MG/DL (1.8-2.4); POTASSIUM SERUM 4.4 MEQ/L (3.5-5.1); SODIUM LEVEL 138 MEQ/L (136-145); TOTAL PROTEIN 7.1 GM/DL (6.4-8.2)
[2020-10-17 07:06] LABS: ERYTHROCYTE SEDIMENTATION RATE 57 mm/hr (0-20)
[2020-10-17] MEDS: VITAMIN D 1,000 INTERNATIONAL UNITS TABLET PO SCH (08:39)
[2020-10-17] MEDS: METOPROLOL TART 12.5 MG PER 1/2 TAB PO SCH (08:39)
[2020-10-17] MEDS: ASPIRIN 81MG ENTERIC TABLET PO SCH (08:39)
[2020-10-17] MEDS: DOCUSATE SODIUM 100MG CAPSULE PO SCH (08:40)
[2020-10-17] MEDS: ATORVASTATIN 20 MG TAB PO SCH (08:40)
[2020-10-17] MEDS: VANCOMYCIN HCL 750 MG, VIAL MATE ADAPTER 1 EACH in NS 250 ML IV SCH (08:40)
[2020-10-17] MEDS: allopurinoL 100 MG TAB PO SCH (08:40)
[2020-10-17] MEDS: FERROUS GLUCONATE 324 MG TAB PO SCH (08:41)
[2020-10-17] MEDS: HumaLOG INSULIN (NovoLOG) PER UNIT SC SCH ×2 (08:41→12:31)
[2020-10-17] MEDS: POTASSIUM CHLORIDE 10 MEQ SR TABLET PO SCH (08:41)
[2020-10-17] MEDS: FINASTERIDE 5 MG TAB PO SCH (08:42)
[2020-10-17 08:43] VITALS: BP 168/52
[2020-10-17] MEDS: FOSINOPRIL 10 MG TAB PO SCH (08:43)
[2020-10-17] MEDS ORDERED: BACT800T5 PO (11:41)
--- NOTE | 2020-10-17 15:36 | DS.PDOC ---
Discharge Summary General Date of Admission Oct 14, 2020 at 21:04 Date of Discharge 10/17/20 Attending Physician: TIFFANY JURADO MD Specialist/Consultants Involve: LATOYA WALDROP DPM Discharge Summary PROCEDURES PERFORMED DURING STAY: Right Hallux nail removal and nonviable bone removal ADMITTING DIAGNOSES: 1. Right great toe osteomyelitis 2. Acute Kidney Injury 3. Diabetes Mellitus Type 2 4. HTN 5. Neuropathy of RLE DISCHARGE DIAGNOSES: 1. Right great toe osteomyelitis 2. Acute Kidney Injury 3. Diabetes Mellitus Type 2 4. HTN 5. Neuropathy of RLE COMPLICATIONS/CHIEF COMPLAINT: Cellulitis And Abscess Of Foot. HISTORY OF PRESENT ILLNESS: Patient is a 69 year old male with a past medical history significant for CAD s/p CABG in 2011, DMII, HTN, HLD and CVA who presented to the [facility] ER with a 1 week history of right great toe pain and swelling with redness extending up the right leg. He had denied any trauma or cuts to the leg. He was given Keflex outpatient but after 3 days he did not notice any difference. He was vitally stable on presentation to the ER. He did have a leukocytosis with elevated CRP and ESR. An X-ray did not demonstrate oste omyelitis however, a follow-up MRI did show a right hallux osteomyelitis. The patient was admitted to hospitalist service for further evaluation and management HOSPITAL COURSE: On admission the patient was started on intravenous antibiotics with both vancomycin and cefepime. On evaluation the patient did have paronychia. Due to the findings of acute osteomyelitis. Podiatry was consulted for evaluation and possible amputation. The patient was seen and a right hallux toenail removal was performed. Additionally, the infected bone was removed down to the point of viable bone. During the duration of the patient's hospitalization, he was continued on IV antibiotics. His bone culture came back positive for Proteus mirabilis and Staphylococcus lugdunensis. The sensitivities were reviewed and the patient was discharged home with Bactrim for 10 days duration. Patient was instructed to follow-up with podiatry, as well as his primary care physician DISCHARGE MEDICATIONS: Please see below. ALLERGIES: Please see below. PHYSICAL EXAMINATION ON DISCHARGE: VITAL SIGNS: Please see below. GENERAL: Awake, alert, and oriented. Appears in no acute distress. Lying comfortably in bed HEENT: Atraumatic, normocephalic. Eyes are nonicteric. Trachea is midline. Mucous membranes are pink and moist CARDIOVASCULAR: Normal S1, S2. Regular rate and rhythm. No clicks, rubs, or murmurs RESPIRATORY: Clear breath sounds bilaterally. Good respiratory effort. No wheezes, rhonchi, or rales ABDOMINAL: Soft, nondistended. Nontender. Normoactive bowel sounds EXTREMITIES: No edema. Right great toe bandaged. Erythema of the right foot has resolved. NEUROLOGICAL: No focal neurological deficits PSYCHOLOGICAL: Mood and affect appear appropriate LABORATORY DATA: Please see below. IMAGING: PROCEDURE INFORMATION: Exam: US Duplex Right Lower Extremity Veins, Limited Exam date and time: 10/14/2020 7:58 PM Age: 69 years old Clinical indication: Swelling (edema) of limb; Lower extremity, right; Additional info: R/O dvt TECHNIQUE: Imaging protocol: Real-time Duplex ultrasound of the Right Lower Extremity with 2-D gresham scale, color Doppler flow and spectral waveform analysis with image documentation. Limited exam was focused on the right lower extremity veins. COMPARISON: No relevant prior studies available. FINDINGS: Right deep veins: Unremarkable. The common femoral, femoral, proximal profunda femoral and popliteal veins are patent without thrombus. Normal Doppler waveforms. Normal compressibility and/or augmentation response. Right superficial veins: Unremarkable. Saphenofemoral junction is patent without thrombus. Soft tissues: Unremarkable. IMPRESSION: No evidence of deep vein thrombosis. Electronically signed by: Pk Greenwood On 10/14/2020 20:03:17 PM INDICATION: infected right great toe ? osteo. COMPARISON: NONE TECHNIQUE: FOUR VIEWS FINDINGS: THE FOUR VIEWS SHOW DEGENERATIVE CHANGES AT THE HIGH P AND MTP JOINT OF THE GREAT TOE WITH MARGINAL OSTEOPHYTES. I DO NOT SEE SUBCUTANEOUS EMPHYSEMA IN THE TOE SOME MILD SOFT TISSUE SWELLING IS IDENTIFIED. NO SOFT TISSUE ULCERATIONS ARE SEEN. NO PLAIN FILM BONY EROSIONS ARE IDENTIFIED. FIRST METATARSAL AND ADJACENT METATARSALS AND PHALANGES ARE WITHOUT OTHER SIGNIFICANT FINDINGS. IMPRESSION: 1. MINOR SOFT TISSUE SWELLING ABOUT THE GREAT TOE BUT NO VISIBLE OR DISPLACED FRACTURE, BONY DESTRUCTIVE LESION, SOFT TISSUE ULCERATION OR BONY EROSION. RADIOGRAPH SUGGESTS A VERY THICKENED TOENAIL OF THE GREAT TOE. NO SUBCUTANEOUS EMPHYSEMA BY PLAIN FILM. THERE ARE DEGENERATIVE CHANGES AT IP AND MTP JOINTS OF THE GREAT TOE. NO OTHER RADIOGRAPHIC FINDINGS. PLEASE RECALL THAT PLAIN RADIOGRAPHS REQUIRE LEAST 50% OF AN AREA OF BONE NEEDS TO BE RESORBED BEFORE OSTEOMYELITIS IS GENERALLY VISIBLE ON PLAIN X-RAY. <Electronically signed by Rick Desai > 10/14/20 PROCEDURE INFORMATION: Exam: MR Right Lower Extremity Other Than Joint Without and With Contrast; Foot Exam date and time: 10/14/2020 11:23 PM Age: 69 years old Clinical indication: Cellulitis; Foot and toes; Right; Additional info: R/O ostemyelitis in R great toe TECHNIQUE: Imaging protocol: MR of the Right lower extremity without and with intravenous contrast. Exam focused on the foot. Contrast material: PROHANCE; Contrast volume: 8.5 ml; Contrast route: INTRAVENOUS (IV); COMPARISON: CR Toes RIGHT 10/14/2020 7:04 PM FINDINGS: There is diffuse soft tissue swelling and subcutaneous edema with overlying skin thickening, most pronounced about the ankle and along the dorsum of the foot. There is a soft tissue ulceration abutting the hallux distal phalanx. No organized fluid collection is identified to suggest abscess. There is no soft tissue mass. No acute tendon or ligament injury is identified. There is no MR evidence of acute fracture or dislocation. Alignment is anatomic. There is prominent bone marrow edema in the hallux distal phalanx, which is clearly evident on the fluid sensitive and T1 weighted sequences and demonstrates brisk enhancement after administration of intravenous contrast material. No convincing erosive or destructive changes are seen. There is no lytic or blastic lesion. There is no significant effusion. IMPRESSION: 1. Acute osteomyelitis of the hallux distal phalanx, as described above. 2. Additional findings, as above. Electronically signed by: Raleigh Gamino On 10/14/2020 23:34:30 PM PROGNOSIS: Good ACTIVITY: [As tolerated]. DIET: Consistent carbohydrate DISCHARGE PLAN: Patient is to be discharged home. He is to continue Bactrim for 10 days. He is to follow-up with Dr. Waldrop of Podiatry. He is to follow-up with PCP in 7-10 days DISCHARGE CONDITION: [Stable]. TIME SPENT ON DISCHARGE: Greater than 40 minutes. Vital Signs/I&Os Vital Signs Date Time Temp Pulse Resp B/P (MAP) Pulse Ox O2 Delivery O2 Flow Rate FiO2 10/17/20 08:43 168/52 10/17/20 08:40 68 10/17/20 05:37 96.7 18 97 Room Air I&O- Last 24 Hours up to 6 AM 10/17/20 06:00 Intake Total 1810 ml Output Total 1800 ml Balance 10 ml Laboratory Data Labs 24H Laboratory Tests 2 10/16/20 16:28: Bedside Glucose (Misc Panel) 286H 10/16/20 18:53: Vancomycin Level Trough 15.2 10/16/20 20:24: Bedside Glucose (Misc Panel) 186H 10/17/20 05:56: Immature Granulocyte % (Auto) 0.5, Neutrophils (%) (Auto) 65.2, Lymphocytes (%) (Auto) 19.1L, Monocytes (%) (Auto) 8.6H, Eosinophils (%) (Auto) 5.5H, Basophils (%) (Auto) 1.1H, Neutrophils # (Auto) 5.3, Lymphocytes # (Auto) 1.5, Monocytes # (Auto) 0.7, Eosinophils # (Auto) 0.4, Basophils # (Auto) 0.1, Nucleated Red Blood Cells % (auto) 0.0, Erythrocyte Sedimentation Rate 57H, Anion Gap 4L, Glomerular Filtration Rate > 60.0, Calcium Level 8.6L, Magnesium Level 2.3, Total Bilirubin 0.5, Aspartate Amino Transf (AST/SGOT) 11, Alanine Aminotransferase (ALT/SGPT) 19, Alkaline Phosphatase 123H, C-Reactive Protein, Quantitative 1.67H, Total Protein 7.1, Albumin 3.2, Albumin/Globulin Ratio 0.8 10/17/20 11:34: Bedside Glucose (Misc Panel) 299H CBC/BMP Laboratory Tests 10/17/20 05:56 FSBS Laboratory Tests Test 10/16/20 16:28 10/16/20 20:24 10/17/20 11:34 Range/Units Bedside Glucose (Misc Panel) 286 186 299 80-115 MG/DL Microbiology Microbiology 10/14/20 Gram Stain - Final, Resulted 10/14/20 Wound Culture - Preliminary, Resulted Proteus Mirabilis Staphylococcus Lugdunensis 10/14/20 Blood Culture - Preliminary, Resulted No Growth after 48 hours. All Specime... 10/14/20 Blood Culture - Preliminary, Resulted No Growth after 48 hours. All Specime... Discharge Medications Scheduled Allopurinol (Allopurinol) 100 Mg Tablet, 100 MG PO DAILY, (Reported) Amlodipine Besylate (Amlodipine Besylate) 10 Mg Tablet, 10 MG PO DAILY, (Reported) Aspirin (Aspirin EC) 81 Mg Tablet.dr, 81 MG PO DAILY, (Reported) Atorvastatin Calcium (Atorvastatin Calcium) 80 Mg Tablet, 80 MG PO DAILY, (Reported) Cholecalciferol (Vitamin D3) (Vitamin D3) 1,000 Unit Tablet, 2,000 UNITS PO DAILY, (Reported) Ferrous Gluconate (Ferrous Gluconate) 324 Mg Tablet, 324 MG PO BID, (Reported) Finasteride (Finasteride) 5 Mg Tablet, 5 MG PO DAILY, (Reported) Fosinopril Sodium (Fosinopril Sodium) 20 Mg Tablet, 10 MG PO DAILY, (Reported) Gabapentin (Gabapentin) 400 Mg Capsule, 1,200 MG PO QHS, (Reported) Hydrochlorothiazide (Hydrochlorothiazide) 25 Mg Tablet, 25 MG PO DAILY, (Rep orted) Insulin Glargine,Hum.rec.anlog (Lantus Solostar) 100 Unit/1 Ml Insuln.pen, 20 UNITS SC QHS, (Reported) Insulin Human Lispro (Novolog) 100 Unit/1 Ml Vial, 1 DOSE SC AC, (Reported) PER SLIDING SCALE Latanoprost (Xalatan) 0.005% 2.5ML Drops, 1 DROP OU QHS, (Reported) Levothyroxine Sodium (Levothyroxine Sodium) 25 Mcg Tablet, 37.5 MCG PO DAILY, (Reported) Metformin HCl (Metformin HCl ER) 500 Mg Tab.er.24h, 1,000 MG PO BID, (Reported) Metoprolol Tartrate (Metoprolol Tartrate) 25 Mg Tablet, 12.5 MG PO BID, (Reported) Potassium Chloride (Potassium Chloride) 10 Meq Capsule.er, 10 MEQ PO BID, (Reported) Sulfamethoxazole/Trimethoprim (Bactrim Ds Tablet) 1 Each Tablet, 1 TAB PO BID Scheduled PRN Glucagon,Human Recombinant (Glucagon Emergency Kit) 1 Mg Vial, 1 MG IM ASDIRECTED PRN for LOW BLOOD SUGAR, (Reported) Allergies Coded Allergies: No Known Drug Allergies (Verified Allergy, Unknown, 10/14/20) GME ATTESTATION GME ATTESTATION My faculty preceptor for this patient encounter was physically present during the encounter and was fully available. All aspects of the patient interview, examination, medical decision making process, and medical care plan development were reviewed and approved by the faculty preceptor. The faculty preceptor is aware and concurs with the plan as stated in the body of this note and will at test to such by his/her cosignature. ATTENDING NOTE Attending Attestation: Patient independently seen and examined. I have discussed in detail with the resident / student the findings and plan of treatment as documented by the resident / student. I agree with their findings and treatment plan and have edited their documentation. I will continue to follow the patient during this hospital stay. ANGLE DAIGLE DO Oct 17, 2020 14:28 TIFFANY JURADO MD Oct 19, 2020 11:48
== END 2020-10-17 14:52 | disposition home or self-care (01) | DRG 629 ==
LOC: M ED 18:00 → M ED INP 21:04 → ENRESERV 21:53 → M MS5PR 23:25
PROVIDERS: ADMIT Family Medicine; ATTEND Internal Medicine
PROC: 0QBQ0ZZ Excision of Right Toe Phalanx, Open Approach (ICD-10-PCS; principal; 2020-10-15)
PROC: 0HDRXZZ Extraction of Toe Nail, External Approach (ICD-10-PCS; 2020-10-15)
DX: E11.69 Type 2 diabetes mellitus with other specified complication (principal); M86.171 Other acute osteomyelitis, right ankle and foot; N17.9 Acute kidney failure, unspecified; I25.10 Atherosclerotic heart disease of native coronary artery without angina pectoris; I10 Essential (primary) hypertension; E78.5 Hyperlipidemia, unspecified; E11.42 Type 2 diabetes mellitus with diabetic polyneuropathy; D50.9 Iron deficiency anemia, unspecified; L03.031 Cellulitis of right toe; Z66 Do not resuscitate; N40.0 Benign prostatic hyperplasia without lower urinary tract symptoms; B96.4 Proteus (mirabilis) (morganii) as the cause of diseases classified elsewhere; B95.8 Unspecified staphylococcus as the cause of diseases classified elsewhere; M10.9 Gout, unspecified; Z79.82 Long term (current) use of aspirin; Z79.4 Long term (current) use of insulin; Z95.1 Presence of aortocoronary bypass graft; Z86.73 Personal history of transient ischemic attack (TIA), and cerebral infarction without residual deficits; Z79.899 Other long term (current) drug therapy; Z20.822 Contact with and (suspected) exposure to COVID-19

== ENCOUNTER → 2021-12-04 | Outpatient (REF) | payer OTHER, MEDICARE ==
[~2021-12-04] MED LIST: ALLO100T PO; AMLO1TAB25 PO; ASPI-161 PO; ATOR80TA59 PO; BACT800T5 PO; FERR32TA PO; FINA5TAB2 PO; FOSI20TA79 PO; GABA-283 PO; GLUC1KIT IM; HYDR-3490 PO; INSUH10VL SC; LANTINJ4 SC; LEVO25TA5 PO; METF-838 PO; METO1TAB87 PO; POTA10CA32 PO; VITA100093 PO; XALA0.007 OU
== END ==
LOC: M LAB REF 18:55
PROVIDERS: ATTEND Podiatrist Foot & Ankle Surgery
DX: M86.10 Other acute osteomyelitis, unspecified site (principal)

== ENCOUNTER → 2023-11-04 | Outpatient (CLI) | payer OTHER, MEDICARE ==
[~2023-11-04] MED LIST changes: -ASPI-161 PO; +ASPI-615 PO; -GABA-283 PO; +GABA-284 PO; +ISOVUE-370 76% 100ML VIAL As Ordered ONE; -POTA10CA32 PO; +POTA10CA60 PO
== END ==
LOC: M RAD 09:29
PROVIDERS: ATTEND Nurse Practitioner Family
DX: I65.23 Occlusion and stenosis of bilateral carotid arteries (principal)
CPT/HCPCS: 70498; Q9967

== ENCOUNTER → 2024-01-06 | Outpatient (CLI) | payer OTHER, MEDICARE ==
[~2024-01-06] MED LIST changes: -ISOVUE-370 76% 100ML VIAL As Ordered ONE; -POTA10CA60 PO; +POTA10CA70 PO
== END ==
LOC: M RAD 14:20
PROVIDERS: ATTEND Physician Assistant
DX: E04.2 Nontoxic multinodular goiter (principal)